=== PATIENT | female | born 1965 | race Caucasian/White ===

== ENCOUNTER 2020-09-13 16:45 | Outpatient (CLI) | payer OTHER, SELFPAY | END 2020-09-13 16:46 | disposition home or self-care (01) | LOC: ANHCOVIDVC 16:45 | PROVIDERS: PCP Family Medicine | DX: Z23 Encounter for immunization (principal) | CPT/HCPCS: 0001A; 91300 ==

== ENCOUNTER 2020-10-04 16:43 | Outpatient (CLI) | payer OTHER, SELFPAY | END 2020-10-04 16:44 | disposition home or self-care (01) | LOC: ANHCOVIDVC 16:43 | PROVIDERS: PCP Family Medicine | DX: Z23 Encounter for immunization (principal) | CPT/HCPCS: 0002A; 91300 ==

== ENCOUNTER 2021-01-05 09:30 | Outpatient (CLI) | payer OTHER, SELFPAY ==
--- NOTE | ~2021-01-05 | MM_ITS ---
EXAMINATION: MM screening [facility] w raquel HISTORY: Screening TECHNIQUE: Craniocaudal and mediolateral oblique 3-D tomosynthesis images were obtained and synthetic 2-D images were generated. CAD analysis was submitted and interpreted. COMPARISON: Comparison to multiple prior studies sequentially, with oldest reviewed study dated 10/20. BREAST PARENCHYMAL COMPOSITION: The breasts are extremely dense, which lowers the sensitivity of mamm ography. FINDINGS: There is no evidence of suspicious mass, calcification, or architectural distortion to sugg est malignancy in either breast. There has been no suspicious interval change. IMPRESSION: 1. No mammographic evidence of malignancy. 2. Recommend routine screening mammography in one year. BI-RADS Category 1: Negative Reviewed, dictated and finalized at location A.
== END 2021-01-05 09:31 | disposition home or self-care (01) ==
PROVIDERS: PCP Family Medicine; Visit Provider Family Medicine
DX: Z12.31 Encounter for screening mammogram for malignant neoplasm of breast (principal)
CPT/HCPCS: 77063; 77067

== ENCOUNTER 2021-02-22 00:13 | Day surgery (SDC) | payer OTHER, SELFPAY ==
[2021-02-09 13:41] VITALS: BMI 34.8
--- NOTE | 2021-02-21 17:23 | PM.HPGS ---
History of Present Illness History of Present Illness Consent: Risks, benefits, and alternatives have been discussed and questions answered. Patient agrees to proceed with procedure. Chief complaint: family hx of colon ca z85.038 [id number] Narrative: Dakota Bailey is a 55 year old female here for colon cancer screening. Her mother had colon cancer. Review of Systems Review of Systems: All systems reviewed & are unremarkable except as noted in HPI and below PMFSH Past Medical History Medical History Obesity (BMI 30.0-34.9) Family History Family History Mother Hypertension Carcinoma of colon Father Family history of lung cancer Other Family history of cardiovascular disease Social History Social History Smoking status: Never smoker Alcohol intake: current Drinks per week: 5 Substance use type: does not use Living arrangements: with family Spiritual care concerns: No Meds Home Medications and Allergies Home Medications Medication Instructions Recorded Confirmed Type multivit with 1 tablet PO DAILY 12/15/20 02/22/21 History mwquvcdn-xybl-SS-lutein 8 mg iron-400 mcg-300 mcg tablet Allergies Allergy/AdvReac Type Severity Reaction Status Date / Time amoxicillin Allergy Unknown Skin Verified 02/22/21 07:34 Reaction Exam Resp: Auscultation: clear to auscultation bilaterally Cardio: Rate: regular rate Rhythm: regular rhythm GI: GI Palp: Yes Soft to palpation and No Tenderness to palpation present (GI) Assessment and Plan Assessment and plan (1) Colon cancer screening: Code(s): Z12.11 - Encounter for screening for malignant neoplasm of colon Status: Acute Assessment and Plan: Colonoscopy with possible biopsy or polypectomy or cautery or injection of substances.
[2021-02-22 07:35] VITALS: BP 149/80; PULSE 76; RESP 16; TEMP 36.4; O2SAT 96
[2021-02-22] MEDS: LACTATED RINGERS 1,000 ML 150 ML IV CONT (07:38)
--- NOTE | 2021-02-22 07:55 | WPDANESEPPF ---
Anes - Initial Pre Proc Eval Procedure: Operation Date: 02/22/21 08:30 Proposed Procedures p Screening Colonoscopy - Oswald Teixeira MD Date/Time: 02/22/21 07:55 Surgeon: Oswald Teixeira MD Pre Op Diagnosis: family hx of colon ca z85.038 [id number] Patient Data Age: 55 Gender: F Height: 1.65 m Weight: 91.8 kg Last Vital Signs Temp 36.4 C L 02/22/21 07:35 Pulse 76 02/22/21 07:35 Resp 16 02/22/21 07:35 BP 149/80 H 02/22/21 07:35 Pulse Ox 96 02/22/21 07:35 Allergies Allergy/AdvReac Type Severity Reaction Status Date / Time amoxicillin Allergy Unknown Skin Verified 02/22/21 07:34 Reaction Home Medications Medication Instructions Recorded Confirmed Type multivit with 1 tablet PO DAILY 12/15/20 02/22/21 History ioxrczxw-pfnc-MK-lutein 8 mg iron-400 mcg-300 mcg tablet Patient hx anesthesia problems: none Family hx anesthesia problems: none PMFSH Past Medical History Medical History (Updated 02/22/21 @ 07:56 by Santosh Womack MD) Obesity (BMI 30.0-34.9) Family History Family History Mother Hypertension Carcinoma of colon Father Family history of lung cancer Other Family history of cardiovascular disease Social History Social History Smoking status: Never smoker Alcohol intake: current Drinks per week: 5 Substance use type: does not use Living arrangements: with family Spiritual care concerns: No Anes - Eval Final PreProcedure Day of Procedure 02/22/21 07:55 Heart: regular rate and rhythm Lungs: clear to auscultation and normal air movement Airway: Mallampati scale class II Neurological: alert and oriented Last oral intake: >/= 8 hours ASA classification: II Emergent: no Anesthetic plan: proceed Anesthesia type and monitoring: general GIVS Informed Consent: The patient's anesthetic plan and its attendant risks and benefits were discussed with the patient/family/POA. Questions were solicited and answers provided to the satisfaction of the patient/family/POA.
[2021-02-22 08:34] VITALS: BP 111/61; PULSE 73; RESP 20; O2SAT 97
[2021-02-22 08:44] VITALS: BP 116/64; PULSE 71; RESP 19; O2SAT 99
[2021-02-22 08:54] VITALS: BP 131/67; PULSE 70; RESP 21; O2SAT 100
== END 2021-02-22 09:01 | disposition home or self-care (01) ==
PROVIDERS: PCP Family Medicine; Visit Provider Internal Medicine Gastroenterology
PROC: 0DJD8ZZ Inspection of Lower Intestinal Tract, Via Natural or Artificial Opening Endoscopic (ICD-10-PCS; CPT 45378; principal; 2021-02-22 08:30)
DX: Z12.11 Encounter for screening for malignant neoplasm of colon (principal); Z80.0 Family history of malignant neoplasm of digestive organs; E66.9 Obesity, unspecified; Z68.33 Body mass index [BMI] 33.0-33.9, adult
CPT/HCPCS: 45378; J2704; J7120

== ENCOUNTER 2022-04-27 08:58 | Outpatient (CLI) | payer OTHER, SELFPAY ==
--- NOTE | ~2022-04-27 | MM_ITS ---
EXAMINATION: MM screening [facility] BI w raquel HISTORY: Screening mammogram TECHNIQUE: Craniocaudal and mediolateral oblique 3-D tomosynthesis images were obtained and synthetic 2-D images were generated. CAD analysis was submitted and interpreted. COMPARISON: 01/05/2021, 02/15/2017, 10/20/2014 BREAST PARENCHYMAL COMPOSITION: The breasts are extremely dense, which lowers the sensitivity of mamm ography. FINDINGS: No suspicious mass, calcification, or architectural distortion are identified in either silvia ast to suggest malignancy. There has been no suspicious interval change. IMPRESSION: 1. No mammographic evidence of malignancy. 2. Recommend routine screening mammography in one year. BI-RADS Category 1: Negative Reviewed, dictated and finalized at location A. L PRESSER
== END 2022-04-27 08:59 | disposition home or self-care (01) ==
PROVIDERS: PCP Family Medicine; Visit Provider Family Medicine
DX: Z12.31 Encounter for screening mammogram for malignant neoplasm of breast (principal)
CPT/HCPCS: 77063; 77067

== ENCOUNTER 2022-05-29 08:05 | Emergency (ER) | payer OTHER, SELFPAY ==
--- NOTE | ~2022-05-29 | XR_ITS ---
Right Knee Technique: AP, lateral, and oblique views were obtained. Clinical History: Pain Findings: No fracture or dislocation is seen. Osseous alignment is anatomic. Joint spaces are preserv ed without degenerative or erosive change. Small joint effusion is seen. Impression: Small joint effusion, nonspecific. No fracture or dislocation. Reviewed, dictated and finalized at [facility]. [employer] Impression: Small joint effusion, nonspecific. No fracture or dislocation.
[2022-05-29 08:11] VITALS: BP 146/65; PULSE 70; RESP 15; TEMP 36.9; O2SAT 98
[2022-05-29 09:19] VITALS: BP 145/74; PULSE 69; RESP 18; O2SAT 99
--- NOTE | 2022-05-29 09:43 | ED.EXTPRO ---
HPI - Extremity Problem General Chief complaint: Extremity Problem,Nontraumatic Stated complaint: R leg pain Time Seen by Provider: 05/29/22 08:09 Source: patient and family Mode of arrival: ambulatory Limitations: no limitations History of Present Illness HPI Narrative: 57-year-old otherwise healthy here with complaints of right knee pain since last few days she states that she is unable to bear weight she denies any trauma. No history of fever or chills. MD Complaint: joint paint Onset (ago): day(s) (2) Pain Consistency: constant Location: right Quality: aching Radiation: none Relieving factors: nothing Exacerbating factors: range of motion and weight bearing Associated symptoms: denies other symptoms Related Data Home Medications Medication Instructions Recorded Confirmed multivit with 1 tablet PO DAILY 12/15/20 02/22/21 dosvtipg-yaxx-YE-lutein 8 mg iron-400 mcg-300 mcg tablet (Centrum Silver Women) Allergies Allergy/AdvReac Type Severity Reaction Status Date / Time amoxicillin Allergy Unknown Skin Verified 02/22/21 07:34 Reaction Penicillins Allergy Hives Verified 05/29/22 08:14 Review of Systems Review of Systems: All systems reviewed & are unremarkable except as noted in HPI and below Constitutional: Constitutional: Reports no additional constitutional complaints Eyes: Eyes: Reports no additional eye complaints ENT: Reports system reviewed and no additional complaints, except as documented Cardiovascular: Cardiovascular: Reports no additional cardiovascular complaints Respiratory: Respiratory: Reports no additional respiratory complaints Musculoskeletal: Musculoskeletal: Reports as per HPI PMFSH Past Medical History Medical History Obesity (BMI 30.0-34.9) Family History Family History Mother Hypertension Carcinoma of colon Father Family history of lung cancer Other Family history of cardiovascular disease Social History Social History Smoking status: Never smoker Alcohol intake: current Drinks per week: 5 Substance use type: does not use Spiritual care concerns: No Exam Narrative: GENERAL: Well-appearing, well-nourished, and in no acute distress. HEAD: Normocephalic, atraumatic. EYES: PERRLA and EOMI. NECK: Supple. CHEST: Clear to auscultation. No respiratory distress. HEART: Regular rate and rhythm. No murmur heard. Normal peripheral pulses. EXTREMITIES: Normal range of motion. No edema. Examination of the right knee shows very minimal joint effusion painful ROM but no deformity SKIN: Warm, dry, no rash. NEURO: No focal deficits. Alert and oriented x3. PSYCH: Normal mood and affect. Course Course Emergency Course: X-ray was obtained of the right knee which showed very minimal joint effusion the joint space appears to be within normal range. Informed patient about her x-ray findings. Recommended her to use Syed wrap. Pain medication as prescribed, follow-up with the primary doctor. Vital Signs Vital signs: Vital Signs Temperature 36.9 C 05/29/22 08:11 Pulse Rate 70 05/29/22 08:11 Respiratory Rate 15 05/29/22 08:11 Blood Pressure 146/65 H 05/29/22 08:11 Pulse Oximetry 98 05/29/22 08:11 Oxygen Delivery Room Air 05/29/22 08:11 Temperature 36.9 C 05/29/22 08:11 Pulse Rate 69 05/29/22 09:19 Respiratory Rate 18 05/29/22 09:19 Blood Pressure 145/74 H 05/29/22 09:19 Pulse Oximetry 99 05/29/22 09:19 Oxygen Delivery Room Air 05/29/22 08:11 MDM - Extremity (Nontraumatic) MDM Narrative Medical decision making narrative: 57-year-old otherwise healthy here with complaints of right knee pain and swelling for past 2 days with no obvious trauma exam shows very minimal swelling around the knee joint painful ROM otherwise x-ray showed mild eddi
== END 2022-05-29 10:43 | disposition home or self-care (01) ==
PROVIDERS: Emergency Provider Family Medicine; PCP Family Medicine
DX: M25.561 Pain in right knee (principal)
CPT/HCPCS: 73564; 99283

== ENCOUNTER 2022-10-22 14:32 | Outpatient (CLI) | payer OTHER, SELFPAY ==
[2022-10-22 15:32] LABS: Kit Draw Collected
== END 2022-10-22 14:33 | disposition home or self-care (01) ==
LOC: ANHGOSHLAB 14:34
PROVIDERS: PCP Family Medicine; Visit Provider Family Medicine
DX: E07.9 Disorder of thyroid, unspecified (principal); E78.5 Hyperlipidemia, unspecified; R03.0 Elevated blood-pressure reading, without diagnosis of hypertension
CPT/HCPCS: 36415

== ENCOUNTER → 2022-10-22 15:04 | Outpatient (CLI) | payer OTHER, SELFPAY ==
--- NOTE | ~2022-10-22 | US_ITS ---
US thyroid INDICATION: Thyroid disorder TECHNIQUE: Real-time sonographic images of the thyroid gland were obtained. COMPARISON: No prior studies for comparison. FINDINGS: The right thyroid lobe measures 4 x 1.1 x 1.2 cm. The left thyroid lobe measures 4.1 x 1.2 x 1.1 cm. There is normal echotexture and echogenicity throughout the thyroid gland. In the right th yroid lobe there is a solid hypoechoic wider than tall smoothly marginated 3 mm mass without echogeni c foci, TR 4. No discrete mass in the left thyroid lobe. Normal vascular flow is present. IMPRESSION: 1. Small 3 mm right thyroid nodule, likely benign. Reviewed, dictated and finalized at location L.
== END ==
PROVIDERS: PCP Family Medicine; Visit Provider Family Medicine
DX: E07.9 Disorder of thyroid, unspecified (principal); E04.1 Nontoxic single thyroid nodule
CPT/HCPCS: 76536

== ENCOUNTER 2023-08-28 07:49 | Outpatient (CLI) | payer OTHER, SELFPAY ==
--- NOTE | ~2023-08-28 | MM_ITS ---
EXAMINATION: MM screening [facility] BI w raquel HISTORY: Screening mammogram TECHNIQUE: Craniocaudal and mediolateral oblique 3-D tomosynthesis images were obtained and synthetic 2-D images were generated. CAD analysis was submitted and interpreted. COMPARISON: 04/27/2022, 01/05/2021 bilateral screening mammogram examinations BREAST PARENCHYMAL COMPOSITION: The breasts are extremely dense, which lowers the sensitivity of mamm ography. FINDINGS: There is no evidence of suspicious mass, calcification, or architectural distortion to sugg est malignancy in either breast. There has been no suspicious interval change. IMPRESSION: 1. No mammographic evidence of malignancy. 2. Recommend routine screening mammography in one year. BI-RADS Category 1: Negative Reviewed, dictated and finalized at location A.
== END 2023-08-28 07:50 | disposition home or self-care (01) ==
LOC: ANHIMG 07:53
PROVIDERS: PCP Family Medicine; Visit Provider Family Medicine
DX: Z12.31 Encounter for screening mammogram for malignant neoplasm of breast (principal)
CPT/HCPCS: 77063; 77067

== ENCOUNTER 2024-10-16 14:57 | Outpatient (CLI) | payer OTHER, SELFPAY ==
--- NOTE | ~2024-10-16 | MM_ITS ---
EXAMINATION: MM screening [facility] BI w raquel HISTORY: Screening TECHNIQUE: Craniocaudal and mediolateral oblique 3-D tomosynthesis images were obtained and synthetic 2-D images were generated. CAD analysis was submitted and interpreted. COMPARISON: Comparison to multiple prior studies sequentially, with oldest reviewed study dated 10/20. BREAST PARENCHYMAL COMPOSITION: Dense: The breasts are extremely dense, which lowers the sensitivity of mammography. FINDINGS: There is no evidence of suspicious mass, calcification, or architectural distortion to sugg est malignancy in either breast. There has been no suspicious interval change. IMPRESSION: 1. No mammographic evidence of malignancy. 2. Recommend routine screening mammography in one year. BI-RADS Category 1: Negative Reviewed, dictated and finalized at location B.
== END 2024-10-16 14:58 | disposition home or self-care (01) ==
LOC: ANHIMG 14:59
PROVIDERS: PCP Family Medicine; Visit Provider Family Medicine
DX: Z12.31 Encounter for screening mammogram for malignant neoplasm of breast (principal)
CPT/HCPCS: 77063; 77067